=== PATIENT | male | born 1980 | race Caucasian/White ===

== ENCOUNTER 2016-11-01 04:44 | Emergency (ER) | payer SELFPAY ==
--- NOTE | ~2016-11-01 | EKG ---
PATIENT: RUDDY KRAMER UNIT #: [id number] Ventricular Rate: 85 BPM Atrial Rate: 85 BPM P-R Interval: 166 ms QRS Duration: 86 ms Q-T Interval: 370 ms QTC Calculation(Bezet): 440 ms P [place]: 36 degrees Calculated R [place]: 72 degrees Calculated T [place]: 29 degrees Diagnosis Line: Normal sinus rhythm Diagnosis Line: Normal ECG Diagnosis Line: When compared with ECG of 17-AUG-2015 10:16, Diagnosis Line: No significant change was found Diagnosis Line: Confirmed by CONCEPCION ROMERO MD ([id number]) on 11/01/2016 Diagnosis Line: 11:29:01 PM INTERPRETING MD: HEATHER GARRIDO
[2016-11-01 04:16] LABS: BASOPHIL# 0.1 X10e3 (0-0.3); BASOPHIL% 0.5 % (0-2.5); EOSINOPHIL# 0.3 X10e3 (0-0.7); EOSINOPHIL% 2.1 % (0.0-7.0); HEMATOCRIT 47.9 % (38.0-50.0); HEMOGLOBIN 16.2 gm/dL (13.0-16.0); LYMPHOCYTE# 3.8 X10e3 (1.0-3.5); LYMPHOCYTE% 26.9 % (17.0-45.0); MEAN CORPUSCULAR HEMOGLOBIN 30.4 PG (28-34); MEAN CORPUSCULAR HGB CONC 33.8 g/dL (30-36); MEAN PLATELET VOLUME 7.7 FL (6.5-11.5); MONOCYTE# 1.4 X10e3 (0-1.0); MONOCYTE% 9.6 % (3.0-12.0); NEUTROPHIL# 8.6 X10e3 (1.5-7.1); NEUTROPHIL% 60.9 % (40-75); PLATELET COUNT 331 X10e3 (140-420); RED BLOOD COUNT 5.33 X10e (3.90-5.60); WHITE BLOOD COUNT 14.2 X10e3 (4.0-10.5)
[2016-11-01 04:19] LABS: DIFF IND NO
[2016-11-01 04:38] LABS: ALBUMIN SERUM 4.8 g/dL (3.5-5.0); ALKALINE PHOSPHATASE 70 U/L (32-92); ALT (SGPT) 36 U/L (10-40); AST (SGOT) 30 U/L (10-42); BILIRUBIN,TOTAL 0.5 mg/dL (0.2-2.0); BLOOD UREA NITROGEN 13 mg/dL (9-23); BUN/CREATININE RATIO 18.57; CALCIUM SERUM 9.6 mg/dL (8.4-10.2); CARBON DIOXIDE 24 mmol/L (22-31); CHLORIDE 102 mmol/L (100-111); CREATININE SERUM 0.7 mg/dL (0.6-1.4); GLOM FILT RATE Estimated 120.6 mL/min (>60); GLUCOSE FASTING 93 mg/dL (70-110); POTASSIUM 3.6 mmol/L (3.5-5.1); PROTEIN TOTAL SERUM 7.8 g/dL (6.0-8.3); SODIUM 136 mmol/L (135-145)
[2016-11-01 04:39] LABS: BILIRUBIN, DIRECT <0.1 mg/dL (0.0-0.2); BILIRUBIN,INDIRECT 0.4 mg/dL (0.0-0.9)
[~2016-11-01 04:44] MED LIST: ALEVE220 M1 PO; BENTYL20 MG PO; DEPAKOTE; FLOMAX0.4 MG PO; HEADACHE MED PO; MULTIVITAMIN1 UDCAP PO; NAPROXEN PO; NO MEDICATIONS; NORCO 5/325 TAB1 TAB PO; PANTOPRAZOLE SO20 MG PO; PHENERGAN PO; PREDNISONE10 MG/DOSE PO; PRILOSEC PO; PROZAC; TORADOL10 MG PO; ULTRAM PO; VITAMINE B-1100 MG PO; VOLTAREN75 MG PO; WELLBUTRIN
== END 2016-11-01 05:25 | disposition home or self-care (01) ==
LOC: CED 04:44
PROVIDERS: Emergency Medicine
DX: E86.0 Dehydration (principal); F17.200 Nicotine dependence, unspecified, uncomplicated; Z98.890 Other specified postprocedural states
CPT/HCPCS: 36415; 80048; 80076; 82947; 85025; 93005; 96361; 96374; 99284; J2765